=== PATIENT | female | born 1980 ===

== ENCOUNTER → 2017-11-05 | Day surgery (SDC) | payer OTHER | END | disposition home or self-care (01) | LOC: CIR.AMB 06:25 | DX: O01.0 Classical hydatidiform mole (principal) ==

== ENCOUNTER 2018-11-25 09:05 | Outpatient (CLI) | payer OTHER | END 2018-11-25 09:09 | disposition home or self-care (01) | LOC: SONOGRAMA 09:05 → MAMO-SONO 09:45 | DX: N63.10 Unspecified lump in the right breast, unspecified quadrant (principal); N63.20 Unspecified lump in the left breast, unspecified quadrant ==

== ENCOUNTER 2019-02-15 10:04 | Inpatient (IN) | payer OTHER ==
[~2019-02-15] VITALS: Ht 160 cm; Wt 2.7 kg
[2019-02-22] MEDS ORDERED: IRON236 MG PO (14:38)
[2019-03-13] MEDS ORDERED: OXYC1TAB9 PO (10:53)
== END 2019-03-13 14:37 | DRG 785 ==
LOC: OB/GYN 02-22 12:00 → O/R 03-10 08:35 → OB/GYN 03-10 12:00
PROVIDERS: ADMIT Obstetrics & Gynecology
PROC: 4A1HXCZ Monitoring of Products of Conception, Cardiac Rate, External Approach (ICD-10-PCS; 2019-03-10)
PROC: 0UB70ZZ Excision of Bilateral Fallopian Tubes, Open Approach (ICD-10-PCS; 2019-03-10)
PROC: 10D00Z1 Extraction of Products of Conception, Low, Open Approach (ICD-10-PCS; principal; 2019-03-10 07:00)
DX: O34.211 Maternal care for low transverse scar from previous cesarean delivery (principal); O82 Encounter for cesarean delivery without indication; Z3A.39 39 weeks gestation of pregnancy; Z37.0 Single live birth; Z30.2 Encounter for sterilization; Z22.330 Carrier of Group B streptococcus